=== PATIENT | female | born 1945 | race Caucasian/White ===

== ENCOUNTER 2017-02-20 07:38 | Day surgery (SDC) | payer BC ==
[2017-02-17 20:04] LABS: WBC (NOT ORDERED) (RFLEX) 0 (0-5)
[2017-02-17 20:33] LABS: BASOPHILS 0.9 %; BASOPHILS ABSOLUTE 0.04 10/3/uL (0.0-0.16); EOSINOPHILS ABSOLUTE 0.13 10/3/uL (0.0-0.53); HEMOGLOBIN 10.8 g/dL (12.0-16.0); IMMATURE GRANULOCYTES 0.2 %; IMMATURE GRANULOCYTES ABSOLUTE 0.01 10/3/uL (0.0-0.11); LYMPHOCYTES 29.2 %; LYMPHOCYTES ABSOLUTE 1.28 10/3/uL (0.67-4.30); MEAN CORPUS HGB CONC 33.8 g/dL (32.0-36.0); MEAN CORPUSCULAR HEMOGLOB 34.7 pg (26.0-34.0); MEAN CORPUSCULAR VOLUME 102.9 fL (80-100); MEAN PLATELET VOLUME 9.7 fL (9.2-13.0); MONOCYTES 13.9 %; MONOCYTES ABSOLUTE 0.61 10/3/uL (0.21-1.20); NEUTROPHILS 52.8 %; NEUTROPHILS ABSOLUTE 2.31 10/3/uL (2.02-8.40); PLATELET COUNT 265 10/3/uL (150-400); RBC DISTRIBUTION WIDTH 13.9 % (12.0-16.0); RED CELL COUNT 3.11 10/6/uL (4.0-5.6); WHITE BLOOD CELLS 4.4 10/3/uL (4.5-10.5)
[2017-02-17 20:34] LABS: MANUAL DIFF NO %
[2017-02-17 20:53] LABS: ASCORBIC ACID (UR NOT ORDER) NEG (NEG); BILIRUBIN, URINE NEGATIVE (NEG); KETONE, URINE NEGATIVE (NEG)
[2017-02-17 20:55] LABS: BUN (BLOOD UREA NITROGEN) 36 MG/DL (6-23); CALCIUM, SERUM 8.6 MG/DL (8.5-10.4); CHLORIDE, SERUM 107 MMOL/L (96-112); CO2 (CARBON DIOXIDE) 24 MMOL/L (24-34); GFR AFRICAN AMERICAN 28 ML/MIN (>=60); GFR NON AFRICAN AMERICAN 24 ML/MIN (>=60); GLUCOSE, SERUM 75 MG/DL (60-99); POTASSIUM, SERUM 4.7 MMOL/L (3.5-5.3); SODIUM, SERUM 142 MMOL/L (135-148)
[2017-02-17 20:59] LABS: LEUKOCYTE ESTERASE(NOT OR TRACE (NEG)
--- NOTE | ~2017-02-20 | OP ---
Record Of Operation [facility] [address] [place]. 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 PROCEDURE: Cystoscopy, right ureteral stent removal, right retrograde pyelogram, placement of right ureteral stent, instillation of bladder medications, and examination under anesthesia. SURGEON: Nisha Donaldson M.D. ANESTHESIA: General. SPECIMENS: None. ESTIMATED BLOOD LOSS: None. COMPLICATIONS: None. DRAINS: A 6 x 28 [place] double-J ureteral stent without a string. DISPOSITION: Extubated to recovery room in good condition. HISTORY: This is a 71-year-old woman with the above-stated problems who presents for the above-stated procedure. Her preoperative creatinine was 2.0 today, which is a slight increase from 1.7 last stent exchange. PROCEDURE IN DETAIL: After consent was obtained, the patient was taken to the operating room and placed on the operative table in the supine position. General anesthetic was induced. The patient was then placed in the dorsal lithotomy position. Her perineum was prepped and draped in the usual sterile fashion. Examination under anesthesia revealed vaginal atrophy with a moderate cystocele. Manager Investigations film on the table showed the stent in good position. Cystourethroscopy was performed with a 30-degree and 70-degree lens. Both ureteral orifices were seen. Her stent was seen exiting the right ureteral orifice. It did not have any significant encrustations. The stent was grasped and removed in its entirety. A right retrograde pyelogram was performed. This showed no significant hydronephrosis of the ureter. She did have some dilatation of the renal pelvis and calices. A wire was easily passed up into the kidney. Once it was passed, some slightly cloudy urine did drain. Nothing grossly purulent was seen. The new stent was passed without any difficulty with a good curl seen in the renal pelvis and in the bladder. It was seen to be draining mostly x- ray dye after it was passed. The bladder was drained. 20 mL of 1% lidocaine plain were passed into the bladder, and the scope and sheath were removed. Some K-Y jelly was placed in the vagina due to some dryness that was noted there. The patient was awakened from her anesthetic, extubated, and taken to recovery room in good condition. Record Of Operation [address] [place]. [address] NAME: JIGNESH PASCAL : 43 STATUS : REG [facility] PAT#: [id number] AGE: 71 ADM/REG DATE : 02/20/17 MR#: [id number] REPORT SERV DATE: 02/20/17 DICTATED BY: NISHA DONALDSON DATE: 02/20/17 REPORT STATUS : Draft TRANSCRIBED BY: NIRMAL DATE: 02/20/17 POSTOP PLAN: Plan will be to send her home on amoxicillin 250 mg t.i.d. for three days and ondansetron 4 mg #10 p.r.n. nausea and Lortab 5 mg #15 p.r.n. We will have her obtain a creatinine level in four weeks, a prescription order has been written for this and have the results faxed to my office in my attention. If her creatinine remains stable around 2, we will change the stent out in eight months. If the creatinine level decreases, we will decrease her stent exchange time period to six months. RACIEL/NIRMAL Nisha Donaldson M.D. / [id number] CC: Abril Acharya M.D.
[~2017-02-20 07:38] MED LIST: ASAB PO; FLECAINIDE100 MG PO; FLEXI JOIN1 PO; IRON TAB PO; MULTIPLE VIT PO; PREV15 PO; PRILO PO; TAMBOCOR PO; TURMERIC PO; VITAMIN B-121000 MC1 SL
== END 2017-02-20 20:46 | disposition home or self-care (01) ==
LOC: SDC 07:38
PROVIDERS: Urology
PROC: BT1DYZZ Fluoroscopy of Right Kidney, Ureter and Bladder using Other Contrast (ICD-10-PCS; 2017-02-20)
PROC: 0T768DZ Dilation of Right Ureter with Intraluminal Device, Via Natural or Artificial Opening Endoscopic (ICD-10-PCS; principal; 2017-02-20 08:45)
DX: N13.5 Crossing vessel and stricture of ureter without hydronephrosis (principal); I48.91 Unspecified atrial fibrillation; N18.9 Chronic kidney disease, unspecified; Z88.1 Allergy status to other antibiotic agents; Z88.8 Allergy status to other drugs, medicaments and biological substances; Z79.82 Long term (current) use of aspirin; Z79.899 Other long term (current) drug therapy; Z98.890 Other specified postprocedural states; Z90.710 Acquired absence of both cervix and uterus; Z96.653 Presence of artificial knee joint, bilateral
CPT/HCPCS: 36415; 74420; 80048; 81001; 85025; 93005; C1758; C1769; C2617; J0290; J1580; J2250; J2370; J2405; J3010; Q9967

== ENCOUNTER 2017-03-18 05:37 | Observation (INO) | payer BC ==
--- NOTE | ~2017-03-18 | TEE ---
Transesophageal Echocardiogram [facility] [address] [place]. [address] NAME: JIGNESH PASCAL : 43 STATUS : REG REF PAT#: [id number] AGE: 71 ADM/REG DATE : 03/18/17 MR#: [id number] REPORT SERV DATE: 03/18/17 DICTATED BY: JAS HSU DATE: 03/18/17 REPORT STATUS : Draft TRANSCRIBED BY: NIRMAL DATE: 03/18/17 INDICATIONS: Preoperative for atrial fibrillation ablation. PROCEDURE IN DETAIL: The patient was brought to the Electrophysiology Laboratory in a fasting state. I previously thoroughly discussed the risks and benefits of the procedure with the patient. She agreed to proceed. All questions were answered. She was prepared in the usual fashion on the EP table. The Anesthesia Service was present to provide monitored anesthesia care in the form of IV propofol. When a proper level of sedation was achieved, the transesophageal echocardiogram probe was gently inserted into the patient's oropharynx and advanced into the esophagus without difficulty. FINDINGS: The left atrium is mildly enlarged. Spontaneous echocardiographic contrast was not seen. No thrombus was seen. The left atrial appendage was thoroughly scanned and well seen. No thrombus was seen there. Pulse wave Doppler within the appendage indicates flow velocities up to about 60 cm/second. The mitral valve is morphologically normal. There is mild mitral regurgitation. Left ventricular systolic function grossly appears preserved. The right ventricle has grossly normal systolic function. The tricuspid valve is grossly morphologically normal. No significant tricuspid insufficiency is noted. The right atrium is mildly enlarged. No thrombus is seen. The interatrial septum is intact by 2D interrogation as well as color flow Doppler. The aortic valve is trileaflet and opens well. There is mild aortic insufficiency. The pulmonic valve is morphologically normal. There is no significant pulmonic insufficiency. There is no obvious pericardial effusion. The descending thoracic aorta and aortic arch do not have any significant atherosclerotic plaquing. CONCLUSION: 1. NO INTRACARDIAC THROMBUS IDENTIFIED. 2. GROSSLY PRESERVED LEFT VENTRICULAR SYSTOLIC FUNCTION. 3. NO OBVIOUS INTERATRIAL CONNECTION. [facility]/NIRMAL Jas Hsu M.D. / [id number] CC: Abril Hernandez M.D.
[2017-03-18 06:36] LABS: BASOPHILS 0.7 %; BASOPHILS ABSOLUTE 0.03 10/3/uL (0.0-0.16); EOSINOPHILS 4.4 %; EOSINOPHILS ABSOLUTE 0.18 10/3/uL (0.0-0.53); HEMATOCRIT 30.7 % (36.0-48.0); HEMOGLOBIN 10.4 g/dL (12.0-16.0); IMMATURE GRANULOCYTES 0.2 %; IMMATURE GRANULOCYTES ABSOLUTE 0.01 10/3/uL (0.0-0.11); LYMPHOCYTES 34.1 %; LYMPHOCYTES ABSOLUTE 1.41 10/3/uL (0.67-4.30); MANUAL DIFF NO %; MEAN CORPUS HGB CONC 33.9 g/dL (32.0-36.0); MEAN CORPUSCULAR HEMOGLOB 33.9 pg (26.0-34.0); MEAN PLATELET VOLUME 9.5 fL (9.2-13.0); MONOCYTES 13.3 %; MONOCYTES ABSOLUTE 0.55 10/3/uL (0.21-1.20); NEUTROPHILS 47.3 %; NEUTROPHILS ABSOLUTE 1.95 10/3/uL (2.02-8.40); PLATELET COUNT 228 10/3/uL (150-400); RBC DISTRIBUTION WIDTH 13.4 % (12.0-16.0); RED CELL COUNT 3.07 10/6/uL (4.0-5.6); WHITE BLOOD CELLS 4.1 10/3/uL (4.5-10.5)
[2017-03-18 06:48] LABS: BUN (BLOOD UREA NITROGEN) 38 MG/DL (6-23); CALCIUM, SERUM 9.2 MG/DL (8.5-10.4); CHLORIDE, SERUM 112 MMOL/L (96-112); CO2 (CARBON DIOXIDE) 23 MMOL/L (24-34); CREATININE 1.74 MG/DL (0.55-1.02); GFR AFRICAN AMERICAN 33 ML/MIN (>=60); GFR NON AFRICAN AMERICAN 29 ML/MIN (>=60); GLUCOSE, SERUM 85 MG/DL (60-99); SODIUM, SERUM 144 MMOL/L (135-148)
[2017-03-18] MEDS ORDERED: FISH-EPA1000 MG PO (06:49)
[2017-03-18 11:45] LABS: PARTIAL THROMBO TIME 80.5 SEC (22.5-37.2)
[2017-03-18 12:15] LABS: INTERNATIONAL NORMAL RATI 2.6 UNITS (-); PROTIME (NOT ORD) 27.5 SEC (12.0-14.5)
== END 2017-03-19 13:30 | disposition home or self-care (01) ==
LOC: CORLMH 05:37 → SSU1 05:44
PROVIDERS: Internal Medicine Cardiovascular Disease
PROC: 02583ZZ Destruction of Conduction Mechanism, Percutaneous Approach (ICD-10-PCS; principal; 2017-03-19)
PROC: 02K83ZZ Map Conduction Mechanism, Percutaneous Approach (ICD-10-PCS; 2017-03-19)
PROC: 4A023FZ Measurement of Cardiac Rhythm, Percutaneous Approach (ICD-10-PCS; 2017-03-19)
PROC: 4A0234Z Measurement of Cardiac Electrical Activity, Percutaneous Approach (ICD-10-PCS; 2017-03-19)
DX: I48.0 Paroxysmal atrial fibrillation (principal); N18.9 Chronic kidney disease, unspecified; M19.90 Unspecified osteoarthritis, unspecified site; K21.9 Gastro-esophageal reflux disease without esophagitis; H91.90 Unspecified hearing loss, unspecified ear; D63.1 Anemia in chronic kidney disease; F41.9 Anxiety disorder, unspecified; Z85.72 Personal history of non-Hodgkin lymphomas; Z90.710 Acquired absence of both cervix and uterus; Z98.890 Other specified postprocedural states; Z96.653 Presence of artificial knee joint, bilateral; Z82.3 Family history of stroke; Z92.21 Personal history of antineoplastic chemotherapy; Z88.1 Allergy status to other antibiotic agents; Z88.5 Allergy status to narcotic agent; Z88.6 Allergy status to analgesic agent; Z88.8 Allergy status to other drugs, medicaments and biological substances; Z79.82 Long term (current) use of aspirin; Z79.899 Other long term (current) drug therapy
CPT/HCPCS: 80048; 82962; 85025; 85347; 85610; 85730; 93005; 93312; 93320; 93325; 93613; 93656; 93662; 96372; A9270-GY; C1732; C1759; C1769; C1781; C1894; G0378; J0583; J3010

== ENCOUNTER 2017-03-27 16:37 | Inpatient (IN) | payer BC ==
--- NOTE | ~2017-03-27 | ECH ---
Echocardiogram [facility] [address] [place]. [address] NAME: JIGNESH PASCAL : 43 STATUS : ADM IN [facility]#: [id number] AGE: 72 ADM/REG DATE : 03/27/17 MR#: [id number] REPORT SERV DATE: 03/31/17 DICTATED BY: DAVID BRODY JR. DATE: 03/31/17 REPORT STATUS : Draft TRANSCRIBED BY: MODL DATE: 03/31/17 DATE OF ACQUISITION: 03/30/2017. REFERRING: Dr. Laguerre, Dr. Hsu, and Dr. Rutledge. INDICATIONS: Evaluation for pericardial effusion, limited echo. TECH: Jennifer Irwin is the RDCS. 2-D INTERPRETATION: Limited 2-dimensional echocardiography was performed. Left atrium was mildly dilated. The left ventricle is normal in size and dimension with normal left ventricular systolic function without obvious wall motion abnormality. Ejection fraction approximately 50% to 55%. The aortic valve is trileaflet, sclerotic. Mitral valve appeared to be structurally normal. Remaining cardiac valves appeared to be structurally normal. There was a trace pericardial effusion without echocardiographic evidence of hemodynamic compromise. A right pleural effusion is postulated. CONCLUSION: NORMAL LEFT VENTRICULAR SYSTOLIC FUNCTION. EJECTION FRACTION ESTIMATED APPROXIMATELY 50% TO 55% WITH TRACE PERICARDIAL EFFUSION ONLY. /NIRMAL David Brody Jr., M.D. / [id number] CC: Abril Sky TIFFANY
--- NOTE | ~2017-03-27 | HP ---
History And Physical [place] [address] [facility] [place]. [address] NAME: JIGNESH PASCAL : 43 STATUS : ADM IN [facility]#: [id number] AGE: 72 ADM/REG DATE : 03/27/17 MR#: [id number] REPORT SERV DATE: 03/27/17 DICTATED BY: TIA FLORES DATE: 03/27/17 REPORT STATUS : Draft TRANSCRIBED BY: MODL DATE: 03/27/17 DATE OF ADMISSION: 03/27/2017 CHIEF COMPLAINT: Fever, not feeling well. Sent over from primary care provider. HISTORY OF PRESENT ILLNESS: Obtained from the patient as well as from primary care provider's office report. Also, prior medical records even though limited available to us were thoroughly reviewed. According to the information available, the patient is a pleasant 72-year-old white woman, who has had cardiac ablation on 03/18/[address] Arslan Hsu at [facility]. She was discharged home on 03/19/2017. Since then, the patient stated that she had not felt well, very weak, and she started having fever, chills, and feeling dizzy with headache and myalgias. Symptoms had progressively gotten worse and apparently she was seen in her primary care provider's office in the beginning of the week, where she actually had blood work done on 03/23/2017 that showed anemia with a hemoglobin of 10.1, white count was normal at 5.25. She was later reevaluated on 03/25/2017 with a hemoglobin of 9.4, hematocrit 26.5, also normal white cell count of 4.26. The patient was seen for ultrasound of the abdomen performed on 03/25/2017 that showed small pericardial effusion, mild fatty infiltration of the liver. Otherwise, no other acute significant pathology. Today, the patient was seen in followup in Dr. Seay's office and she had a fever, white count elevated at 13.5, hemoglobin 9.4 with a hematocrit of 28.3. Because of the reported fever and elevated white cell count with increasing anemia and reported pericardial effusion, the patient was referred to the emergency room department for further evaluation. In our emergency room department, the patient was noticed to be pale, ill appearing. The patient had a temperature of 100.5 upon arrival. Further testing revealed urinary tract infection as well as further decrease in hemoglobin and hematocrit with a hemoglobin 7.5, hematocrit 21.8, as well as elevated white cell count of 10.7 and even more significant coagulopathy with a PTT of more than 150 and a PTT of 29.9, INR 2.9, while the patient not on any anticoagulation. Because of the above presentation and because of the above findings during ER evaluation, the patient was referred to the Hospitalist Service for further management and evaluation. PAST MEDICAL HISTORY: Significant for arrhythmia with atrial fibrillation, status post cardiac ablation by Dr. Arslan Hsu on 03/18/2017; history of GERD; history of non- Hodgkin's lymphoma, the patient apparently in remission for at least a couple of months to years; history of chronic kidney disease stage 3 with apparent left nephrectomy and presently undergoing scheduled right ureteral stent placement; history of hyperlipidemia; history of GERD, history of osteoarthritis. PAST SURGICAL HISTORY: Significant for bladder sling x3; colonoscopy; hysterectomy in ; bilateral total knee replacements, subsequent left nephrectomy and schedule right ureteral stent exchange/replaced last in 02/20/2017, followed up regularly by Dr. Donaldson, Urology; history of ORIF of the left hip in 10/2016 after left hip fracture; history of cardiac ablation as mentioned before in 03/18/[address] Arslan Hsu; Lap-Band surgery. ALLERGIES: BENADRYL, PREDNISONE, ERYTHROMYCIN, CIPROFLOXACIN, TRAMADOL, DICLOFENAC, CORTISONE, MOBIC, AND KETEK (TELITHROMYCIN). History And Physical [address] [address] NAME: JIGNESH PASCAL BENITEZ : 43 STATUS : ADM IN [facility]#: [id number] AGE: 72 ADM/REG DATE : 03/27/17 MR#: [id number] REPORT SERV DATE: 03/27/17 DICTATED BY: TIA FLORES DATE: 03/27/17 REPORT STATUS : Draft TRANSCRIBED BY: NIRMAL DATE: 03/27/17 HOME MEDICATIONS: According to list provided, the patient is supposed to take multivitamin 1000 p.o. daily, Prevacid 50 mg p.o. daily, aspirin 81 mg p.o. daily, glucosamine chondroitin tablet one tablet p.o. daily, iron tablet 65 mg p.o. daily, vitamin B12 at 1000 mcg sublingual daily, omega-3 fatty acid 1000 mg p.o. daily. FAMILY HISTORY: Significant for hypertension and coronary artery disease. SOCIAL HISTORY: She is , lives with family. Presently retired. Denies tobacco abuse. Denies alcohol abuse. Denies illicit recreational drug abuse. REVIEW OF SYSTEMS: As per H and P, otherwise negative in all review of systems. Please note that the comprehensive review of system was obtained and pertinent positives were including in the H and P. PHYSICAL EXAMINATION: GENERAL: Pleasant, cooperant, but pale, ill appearing. VITAL SIGNS: Upon arrival in the emergency room, blood pressure 120/57, pulse 87, respiratory rate 18, temperature 100.5, and oxygen saturation 96% on room air. HEENT: With bilateral cataracts. Extraocular movements intact. Throat, mild erythema. No exudate. No signs of tenderness. NECK: Supple. No JVD. No bruits. No thyromegaly. No lymph nodes. LUNGS: Bilateral air entry with few bibasilar crackles. No wheezing. Good airway movement. Right subclavicular Port-A-Cath in place. HEART: Positive S1, S2. Regular rate and rhythm. Positive mitral regurgitation murmur at the apex. Soft. No rub, no gallop. PMI nondisplaced by palpation. ABDOMEN: Positive bowel sounds. Soft. No tenderness, no hepatosplenomegaly, no guarding. EXTREMITIES: Decreased range of motion. Osteoarthritic changes. No clubbing, no cyanosis, no edema, no calf tenderness. +2 pulses. NEUROLOGIC: Alert and oriented x3. Grossly nonfocal. Cranial nerves 2 through 12 grossly intact. Motor strength 5/5 symmetrical bilateral. Deep tendon reflexes 2/2 symmetrical bilateral. BACK: With decreased range of motion. No focal localized tenderness. No CVA tenderness. SKIN: No bruises, no rashes. No lacerations. SIGNIFICANT LABORATORY DATA: Chest x-ray (personal reading) showed no acute infiltrate. Cardiac silhouette within normal limits. EKG (personal reading) showed normal sinus rhythm at 84 beats per minute with occasional PVCs. No acute ST elevation. Urinalysis was cloudy, large LE, small blood, white cells more than 182 with many clumps, many yeasts, and moderate bacteria. Sodium 142, potassium 3.8, chloride 112, bicarb 20, BUN 38, creatinine 1.65, glucose 86, calcium 7.6, magnesium 1.9. Liver function test, slightly elevated with ALT 83 and AST 103. Troponin I less than 0.04, lactate level 0.5 which is within normal limits. White cell count 10.7, hemoglobin 7.5 with a hematocrit 21.8 and platelet count 236. PTT more than 150 and PT time 29.9 with an INR of 2.9. BNP 130.7. ASSESSMENT AND PLAN AND PROBLEM LIST: The patient is a pleasant 72-year-old woman admitted History And Physical [address] [address] NAME: JIGNESH PASCAL : 43 STATUS : ADM IN [facility]#: [id number] AGE: 72 ADM/REG DATE : 03/27/17 MR#: [id number] REPORT SERV DATE: 03/27/17 DICTATED BY: TIA FLORES DATE: 03/27/17 REPORT STATUS : Draft TRANSCRIBED BY: MODKeshav DATE: 03/27/17 with likely urinary tract infection and also significant anemia. IMPRESSION: 1. Renal and genitourinary problem. a. Urinary tract infection with acute cystitis without hematuria. b. Solitary kidney with recent ureteral stent replaced. c. Chronic kidney disease stage 3. For all the above, we are going to admit on the Hospitalist Service. We are going to obtain a Urology consult with Dr. Donaldson especially at the request of the patient at this moment. We are going to check a CT scan of the abdomen and pelvis without contrast to assess for any signs of urinary retention, blockage, and obstructive uropathy. Start IV antibiotic with IV Rocephin and add at this moment also Diflucan IV due to the presence of yeast in the urine. Monitor BUN and creatinine. Monitor urinary output. Provide gentle IV hydration. 1. Hematologic problem. a. Anemia, severe, symptomatic with acute blood loss component likely perioperatively/after the surgical procedure. b. Coagulopathy, uncertain etiology. Fear lab error. We are going to repeat stat PT, PTT, and CBC. c. Non-Hodgkin's lymphoma, in remission. Continue to monitor and follow up as per the patient as outpatient with her oncologist. d. Leukocytosis, likely infectious. We are going to start treatment for her urinary tract infection. We are going to transfuse 1 unit of PRBCs and monitor H and H, continue Hemoccult. Sent anemia studies. In case her coagulopathy test remains elevated especially PT and INR, we are going to give vitamin K and FFPs. 2. Cardiovascular. a. Arrhythmia with atrial fibrillation, status post cardiac ablation by Dr. Arslan Hsu on 03/18/2017, presently remained in sinus rhythm. Continue to monitor. b. Pericardial effusion by report from outside abdominal ultrasound testing. We are going to obtain a limited 2D echo in a.m. to assess the size of the pericardial effusion. If significant, we are going to obtain Cardiology consultation. 3. Gastrointestinal problem. a. Gastroesophageal reflux disease by history. b. Elevated liver function tests. c. Nonalcoholic steatohepatitis ("fatty liver"). For all the above, we are going to use Protonix PPI 40 mg IV b.i.d. and monitor liver function tests. Monitor for any signs of gastrointestinal bleed. 1. Hyperlipidemia, mixed type. Continue fish oil and low-cholesterol diet. 2. Osteoarthritis, osteoporosis, deconditioning, and debilitation. The patient to consider physical therapy and encouraged mobilization. PROGNOSIS: Moderately good for this admission. Discussed with patient and questions were answered in full. Please note, the patient is a full code at this moment as discussed with the patient. History And Physical [address] [address] NAME: JIGNESH PASCAL : 43 STATUS : ADM IN [facility]#: [id number] AGE: 72 ADM/REG DATE : 03/27/17 MR#: [id number] REPORT SERV DATE: 03/27/17 DICTATED BY: TIA FLORES ION DATE: 03/27/17 REPORT STATUS : Draft TRANSCRIBED BY: MODL DATE: 03/27/17 RF/NIRMAL Tia Flores M.D. / [id number] CC: Abril Sky M.D. Michael C Allan, M.D. Kymber Habenicht, M.D.
--- NOTE | ~2017-03-27 | CN ---
Consultation Report [facility] [address] [place]. [address] NAME: JIGNESH PASCAL : 43 STATUS : ADM IN [facility]#: [id number] AGE: 72 ADM/REG DATE : 03/27/17 MR#: [id number] REPORT SERV DATE: 03/28/17 DICTATED BY: TRISTA HUITRON DATE: 03/28/17 REPORT STATUS : Draft TRANSCRIBED BY: MODL DATE: 03/28/17 CONSULTATION DATE OF CONSULTATION: 03/28/2017 HISTORY: This is a 72-year-old white female, who was admitted to [facility] on 03/27/2017 with complaints of a roughly two-week history of not feeling well and weakness, and also pelvic and hip pain. This progressed to fevers and chills prompting an emergency room visit. Upon arrival in the emergency room, she appeared to have infected urine and was running a fever of 100.5. She sees Dr. Donaldson for chronic right ureteral obstruction, managed with a chronic stent. She underwent stent exchange on 02/20/2017. She has a severely atrophic, likely nonfunctional left kidney. She also has chronic renal disease and the creatinine here has been roughly 1.6. She is chronically incontinent as well and just simply voids into a diaper. She has had multiple bladder neck suspension type surgeries in the past. Ideally, she is not really complaining of any bladder or urinary problems. Specifically, she has no dysuria, no hematuria, no foul odor to the urine, etc. She does complain of pain across her pelvis, but she points more toward both hips. She has been having some back pain, but did not relate that to her kidney specifically. MEDICAL HISTORY: Includes a history of non-Hodgkin's lymphoma. This has been treated in the past, but she is not on any treatment at this point. Also atrial fibrillation, status post recent cardiac ablation on 03/18/2017, reflux, chronic renal disease, hyperlipidemia, arthritis. SURGICAL HISTORY: Includes chronic stent exchange most recently 02/20/[address] Donaldson, remote hysterectomy, history of multiple bladder neck sling type surgeries, bilateral knee replacements, repair of a left hip fracture in 10/2016, and lap band surgery. SOCIAL HISTORY: She is . She is retired. She does not drink or smoke. MEDICATIONS: She takes no chronic medicine. Her active hospital medications have been reviewed and include Rocephin daily. ALLERGIES: SHE HAS MULTIPLE ALLERGIES INCLUDING DIPHENHYDRAMINE, PREDNISONE, ERYTHROMYCIN, CIPRO, TRAMADOL, DICLOFENAC, CORTISONE, MELOXICAM, TELITHROMYCIN. PHYSICAL EXAMINATION: GENERAL: She is a pleasant white female, who does not appear in any overt distress at this time. She is alert, oriented, and conversive. VITAL SIGNS: She is afebrile. Her vital signs are stable. HEENT: Pupils are equal, round, and reactive. Extraocular movements intact. Oropharynx clear. NECK: Supple. No adenopathy. LUNGS: Clear. Consultation Report [place] [id number] [facility] [place]. [address] NAME: JIGNESH PASCAL : 43 STATUS : ADM IN [facility]#: [id number] AGE: 72 ADM/REG DATE : 03/27/17 MR#: [id number] REPORT SERV DATE: 03/28/17 DICTATED BY: TRISTA HUITRON DATE: 03/28/17 REPORT STATUS : Draft TRANSCRIBED BY: NIRMAL DATE: 03/28/17 ABDOMEN: Soft, nontender, and nondistended. Her back seems to be nontender. EXTREMITIES: No cyanosis. LABORATORY VALUES: Urine culture shows greater than 100,000 gram-negative bacilli. Her creatinine is currently 1.7. White count is 10.2, H and H 10.2 and 29.6. Procalcitonin was elevated at 1.3. Urinalysis on admission showed greater than 180 white cells and 8 red cells per high-powered field. CT of the abdomen and pelvis has been reviewed. The right ureteral stent is in position and appears to be well positioned with no overt right hydronephrosis. There are likely inflammatory changes around the right kidney. The left kidney is quite atrophic and likely nonfunctional. The bladder appears to be decompressed. Incidental note is made of chronic left hydro. Note was also made of increased soft tissue in the retroperitoneum of uncertain origin. IMPRESSION: 1. Febrile urinary tract infection. 2. Chronic right ureteral obstruction. Managed with chronic stenting. Last exchanged by Dr. Donaldson, 02/20/2017. 3. Severely atrophic, likely nonfunctional left kidney. 4. Chronic urinary incontinence. 5. History of multiple bladder neck sling surgeries. 6. Chronic renal disease. 7. Atrial fibrillation, status post recent cardiac ablation, 03/18/2017. 8. History of lymphoma, now with increased retroperitoneal soft tissue densities noted on CT scan. RECOMMENDATIONS: From a standpoint, we will observe for now given no definitive findings of hydronephrosis on the right side. I am going to check a PVR volume. We will await her final urine C and S results. Agree with Corinna at this time. We will certainly notify Dr. Donaldson for admission on Thursday. Thank you very much for the consult. DS/MODL Trista Huitron M.D. / [id number] CC: Abril Sky Tiffany
--- NOTE | ~2017-03-27 | DS ---
Discharge Summary [facility] [address] [place]. [address] NAME: JIGNESH PASCAL : 43 STATUS : DIS IN PAT#: [id number] AGE: 72 ADM/REG DATE : 03/27/17 MR#: [id number] REPORT SERV DATE: 04/01/17 DICTATED BY: RADHA CACERES DATE: 03/31/17 REPORT STATUS : Draft TRANSCRIBED BY: MODL DATE: 03/31/17 ADMISSION DATE: 03/27/2017 DISCHARGE DATE: CONSULTING PHYSICIAN: 1. Dr. Donaldson for Urology. 2. Dr. Lex Dumont for Oncology. 3. Dr. Fawn Franklin, her outpatient oncologist. FINAL DIAGNOSES: 1. Klebsiella pneumoniae and Proteus mirabilis urinary tract infection. 2. Chronic kidney disease 3. 3. Acute blood loss anemia, status post 1 unit of packed RBC. 4. History of stage IVB non-Hodgkin lymphoma. 5. Trace pericardial effusion. 6. Recent cardiac ablation. DIAGNOSTIC EXAM: Chest x-ray showing no acute cardiopulmonary process. CAT scan of the abdomen and pelvis showing retroperitoneal soft tissue density surrounding the abdominal aorta and IVC as well as renal vessels extending from at least the crux of the diaphragm to just above the aortic bifurcation. Findings may be due to retroperitoneal fibrosis or malignancy such as lymphoma. Double-J ureteral stent in place in the right, appearing to be in good position. No definite dilatation of the right renal collecting system. Mild-to- moderate left hydronephrosis likely chronic with chronic appearing atrophic left kidney. Colonic diverticulosis without acute diverticulitis. Trace right pleural effusion. Small hiatal hernia. Echocardiogram showing normal left ventricular systolic function, EF of 50%- 55%, with trace pericardial effusion. HOSPITAL COURSE: Please refer to the H and P done by Dr. Gutierrez, dated on 03/27/2017. Briefly, this is a 72-year-old female, sent over from the PCP for not feeling well. The patient has a history of stage IV non-Hodgkin lymphoma and has been following with Dr. Fawn Franklin in [place]. She completed chemotherapy and radiation therapy and was being followed with serial CAT scans. She was told that everything is stable. She underwent a cardiac ablation on 03/18/[address] Arslan Hsu and discharged on 03/19/2017, but she said she has not felt very well, started having fever, chills, dizziness, headache, myalgias. It got worse, went to the PCP, got blood work done and showed she has anemia. Ultrasound was also done, showed small pericardial effusion, and the patient was then sent to the emergency room for further evaluation. The patient was then admitted by Dr. Gutierrez for possible UTI and we got Dr. Estrella involved, who is covering for Dr. Donaldson, and when she followed up, she believes that everything is stable. Recommended antibiotics for at least 14 days. Follow up with Oncology and cleared the patient for discharge. We also got the echocardiogram, which shows the above findings, and she will just need followup on an outpatient basis for that. Meanwhile, a CAT scan shows the above findings. Unfortunately, we do not have the films from [facility] to compare it with. So, we got Oncology involved. They wanted to have our radiologist compare it in the PAC system and once they done that they will decide on the recommendation, but most likely that she is going to be discharged Discharge Summary [address] [address] NAME: JIGNESH PASCAL BENITEZ : 43 STATUS : DIS IN PAT#: [id number] AGE: 72 ADM/REG DATE : 03/27/17 MR#: [id number] REPORT SERV DATE: 04/01/17 DICTATED BY: RADHA CACERES DATE: 03/31/17 REPORT STATUS : Draft TRANSCRIBED BY: NIRMAL DATE: 03/31/17 with outpatient followup with Dr. Franklin in April. So once we get clearance from Oncology, we will be discharging the patient with the above diagnosis. We will be giving her a prescription for Duricef 500 mg twice a day for her UTI for 10 more days to complete two weeks. She will continue her other home medications of vitamin B12 1000 mcg sublingual a day, multivitamin once a day, omega-3 fatty acid 1000 mg a day, Prevacid 15 mg a day, aspirin 81 mg a day, iron pills, and glucosamine chondroitin sulfate. The patient also got a unit of blood. So for the H and H has been stable. Her discharge H and H are 10.6 and 31, up from 7.5 and 21.8 on admission. The patient will follow up with her PCP, Angel Seay, in one to two weeks. Follow up with Dr. Fawn Franklin in April as scheduled and follow up with Dr. Donaldson as scheduled. The patient would want an outpatient PT, not a home PT. This has been explained to her in front of family members. Multiple questions answered. TIME SPENT: 45 minutes. RUFUS/NIRMAL Radha Caceres M.D. / [id number] CC: Abril Sky M.D. TIFFANY HAYES, PA-C
[~2017-03-27 16:37] MED LIST changes: +FISH-EPA1000 MG PO
[2017-03-27 17:22] LABS: ASCORBIC ACID (UR NOT ORDER) NEG (NEG); BILIRUBIN, URINE NEGATIVE (NEG); ER URINALYSIS TAT 0 Hrs 13 Mins; KETONE, URINE NEGATIVE (NEG); LEUKOCYTE ESTERASE(NOT OR LARGE (NEG); NITRITE (URINE) NEG (NEG)
[2017-03-27 17:23] LABS: WBC (NOT ORDERED) (RFLEX) > 182 (0-5)
[2017-03-27 17:25] LABS: BASOPHILS 0.1 %; BASOPHILS ABSOLUTE 0.01 10/3/uL (0.0-0.16); EOSINOPHILS 0.1 %; EOSINOPHILS ABSOLUTE 0.01 10/3/uL (0.0-0.53); IMMATURE GRANULOCYTES 0.4 %; IMMATURE GRANULOCYTES ABSOLUTE 0.04 10/3/uL (0.0-0.11); LYMPHOCYTES 12.6 %; LYMPHOCYTES ABSOLUTE 1.35 10/3/uL (0.67-4.30); MEAN CORPUS HGB CONC 34.4 g/dL (32.0-36.0); MEAN CORPUSCULAR HEMOGLOB 34.1 pg (26.0-34.0); MEAN CORPUSCULAR VOLUME 99.1 fL (80-100); MEAN PLATELET VOLUME 9.3 fL (9.2-13.0); MONOCYTES 11.6 %; MONOCYTES ABSOLUTE 1.24 10/3/uL (0.21-1.20); NEUTROPHILS 75.2 %; NEUTROPHILS ABSOLUTE 8.06 10/3/uL (2.02-8.40); PLATELET COUNT 236 10/3/uL (150-400); RBC DISTRIBUTION WIDTH 13.4 % (12.0-16.0)
[2017-03-27 17:31] LABS: ER CBC TAT 0 Hrs 14 Mins; HEMATOCRIT 21.8 % (36.0-48.0); HEMOGLOBIN 7.5 g/dL (12.0-16.0); MANUAL DIFF NO %; WHITE BLOOD CELLS 10.7 10/3/uL (4.5-10.5)
[2017-03-27 17:34] LABS: INTERNATIONAL NORMAL RATI 2.9 UNITS (-); PROTIME (NOT ORD) 29.9 SEC (12.0-14.5)
[2017-03-27 17:42] LABS: A/G RATIO 0.9 (0.7-1.9); ALBUMIN 2.6 G/DL (3.5-5.0); ALKALINE PHOSPHATASE 135 U/L (45-117); BUN (BLOOD UREA NITROGEN) 38 MG/DL (6-23); CHEST PAIN PROFILE TAT 0 Hrs 25 Mins; CHLORIDE, SERUM 112 MMOL/L (96-112); CO2 (CARBON DIOXIDE) 20 MMOL/L (24-34); CREATININE 1.65 MG/DL (0.55-1.02); GFR AFRICAN AMERICAN 35 ML/MIN (>=60); GFR NON AFRICAN AMERICAN 30 ML/MIN (>=60); GLUCOSE, SERUM 86 MG/DL (60-99); POTASSIUM, SERUM 3.8 MMOL/L (3.5-5.3); SGOT(AST) 103 U/L (5-40); SGPT(ALT) 83 U/L (5-65); SODIUM, SERUM 142 MMOL/L (135-148); TOTAL BILIRUBIN 0.4 MG/DL (0-1.2); TOTAL PROTEIN 5.6 G/DL (6.0-8.5); TROPONIN I 0.04 NG/ML (<0.05)
[2017-03-27 17:43] LABS: CALCIUM, SERUM 7.6 MG/DL (8.5-10.4)
[2017-03-27 17:47] LABS: PARTIAL THROMBO TIME > 150.0 SEC (22.5-37.2)
[2017-03-27 19:55] LABS: ER CBC TAT 0 Hrs 08 Mins; HEMATOCRIT 23.9 % (36.0-48.0); HEMOGLOBIN 8.3 g/dL (12.0-16.0); MEAN CORPUS HGB CONC 34.7 g/dL (32.0-36.0); MEAN CORPUSCULAR HEMOGLOB 34.3 pg (26.0-34.0); MEAN CORPUSCULAR VOLUME 98.8 fL (80-100); MEAN PLATELET VOLUME 8.8 fL (9.2-13.0); PLATELET COUNT 218 10/3/uL (150-400); RBC DISTRIBUTION WIDTH 13.4 % (12.0-16.0); RED CELL COUNT 2.42 10/6/uL (4.0-5.6); WHITE BLOOD CELLS 10.5 10/3/uL (4.5-10.5)
[2017-03-27 19:58] LABS: MANUAL DIFF YES %
[2017-03-27 20:03] LABS: INTERNATIONAL NORMAL RATI 1.3 UNITS (-); PARTIAL THROMBO TIME 34.3 SEC (22.5-37.2)
[2017-03-27 20:08] LABS: PROTIME (NOT ORD) 16.4 SEC (12.0-14.5)
[2017-03-27 21:02] LABS: BAND NEUTROPHILS 5 %; EOSINOPHILS 1 %; EOSINOPHILS ABSOLUTE (CALC) 0.11 10/3/uL (0.0-0.53); ER DIFF TAT 1 Hrs 15 Mins; LYMPHOCYTES 10 %; LYMPHOCYTES ABSOLUTE (CALC) 1.05 10/3/uL (0.67-4.30); MONOCYTES 11 %; MONOCYTES ABSOLUTE (CALC) 1.16 10/3/uL (0.21-1.20); NEUTROPHILS ABSOLUTE (CALC) 8.19 10/3/uL (2.02-8.40); SEGMENTED NEUTROPHIL (0) 73 %; TOTAL NUCLEATED CELLS 100
[2017-03-27 21:03] LABS: HELMET CELLS FEW (3-10/OIF); PLATELET ESTIMATE ADQ (ADEQUATE)
[2017-03-27 21:15] LABS: RETICULOCYTE COUNT 1.6 % (0.5-2.5); RETICULOCYTE COUNT ABSOLUTE 40.6 10/3/uL (20.2-119.8)
[2017-03-27 21:39] LABS: PHOSPHORUS, SERUM 2.6 MG/DL (2.5-4.5); ULTRASENSITIVE TSH 1.06 MCIU/ML (0.358-3.740)
[2017-03-27 22:36] LABS: FIBRINOGEN 522 MG/DL (230-462)
[2017-03-27 23:01] LABS: PROCALCITONIN 1.3 ng/mL (<0.5)
[2017-03-28 10:14] LABS: BASOPHILS 0.3 %; BASOPHILS ABSOLUTE 0.03 10/3/uL (0.0-0.16); EOSINOPHILS 0.4 %; EOSINOPHILS ABSOLUTE 0.04 10/3/uL (0.0-0.53); IMMATURE GRANULOCYTES 0.3 %; IMMATURE GRANULOCYTES ABSOLUTE 0.03 10/3/uL (0.0-0.11); LYMPHOCYTES 7.6 %; LYMPHOCYTES ABSOLUTE 0.77 10/3/uL (0.67-4.30); MEAN CORPUS HGB CONC 34.5 g/dL (32.0-36.0); MEAN CORPUSCULAR HEMOGLOB 33.3 pg (26.0-34.0); MEAN CORPUSCULAR VOLUME 96.7 fL (80-100); MEAN PLATELET VOLUME 9.3 fL (9.2-13.0); MONOCYTES 10.5 %; MONOCYTES ABSOLUTE 1.07 10/3/uL (0.21-1.20); NEUTROPHILS 80.9 %; NEUTROPHILS ABSOLUTE 8.21 10/3/uL (2.02-8.40); PLATELET COUNT 211 10/3/uL (150-400); WHITE BLOOD CELLS 10.2 10/3/uL (4.5-10.5)
[2017-03-28 10:15] LABS: HEMATOCRIT 29.6 % (36.0-48.0); HEMOGLOBIN 10.2 g/dL (12.0-16.0); MANUAL DIFF NO %; RBC DISTRIBUTION WIDTH 16.1 % (12.0-16.0); RED CELL COUNT 3.06 10/6/uL (4.0-5.6)
[2017-03-28 10:21] LABS: INTERNATIONAL NORMAL RATI 1.3 UNITS (-); PARTIAL THROMBO TIME 31.3 SEC (22.5-37.2); PROTIME (NOT ORD) 15.7 SEC (12.0-14.5)
[2017-03-28 10:31] LABS: ALBUMIN 2.6 G/DL (3.5-5.0); BUN (BLOOD UREA NITROGEN) 32 MG/DL (6-23); CALCIUM, SERUM 8.6 MG/DL (8.5-10.4); CHLORIDE, SERUM 111 MMOL/L (96-112); CK-MB 0.9 NG/ML; CO2 (CARBON DIOXIDE) 23 MMOL/L (24-34); CPK 53 U/L (0-200); CREATININE 1.77 MG/DL (0.55-1.02); GFR AFRICAN AMERICAN 32 ML/MIN (>=60); GFR NON AFRICAN AMERICAN 28 ML/MIN (>=60); GLUCOSE, SERUM 85 MG/DL (60-99); PHOSPHORUS, SERUM 2.9 MG/DL (2.5-4.5); POTASSIUM, SERUM 4.1 MMOL/L (3.5-5.3); SODIUM, SERUM 136 MMOL/L (135-148); TROPONIN I 0.03 NG/ML (<0.05)
[2017-03-29 07:23] LABS: BASOPHILS 0.1 %; BASOPHILS ABSOLUTE 0.01 10/3/uL (0.0-0.16); EOSINOPHILS 1.4 %; EOSINOPHILS ABSOLUTE 0.11 10/3/uL (0.0-0.53); HEMATOCRIT 28.5 % (36.0-48.0); HEMOGLOBIN 9.7 g/dL (12.0-16.0); IMMATURE GRANULOCYTES 0.3 %; IMMATURE GRANULOCYTES ABSOLUTE 0.02 10/3/uL (0.0-0.11); LYMPHOCYTES 8.7 %; LYMPHOCYTES ABSOLUTE 0.68 10/3/uL (0.67-4.30); MANUAL DIFF NO %; MEAN CORPUSCULAR HEMOGLOB 32.9 pg (26.0-34.0); MEAN CORPUSCULAR VOLUME 96.6 fL (80-100); MEAN PLATELET VOLUME 9.3 fL (9.2-13.0); MONOCYTES 10.5 %; MONOCYTES ABSOLUTE 0.82 10/3/uL (0.21-1.20); NEUTROPHILS ABSOLUTE 6.14 10/3/uL (2.02-8.40); PLATELET COUNT 222 10/3/uL (150-400); RBC DISTRIBUTION WIDTH 15.8 % (12.0-16.0); RED CELL COUNT 2.95 10/6/uL (4.0-5.6); WHITE BLOOD CELLS 7.8 10/3/uL (4.5-10.5)
[2017-03-29 07:38] LABS: A/G RATIO 0.7 (0.7-1.9); ALBUMIN 2.5 G/DL (3.5-5.0); ALKALINE PHOSPHATASE 146 U/L (45-117); BUN (BLOOD UREA NITROGEN) 30 MG/DL (6-23); CALCIUM, SERUM 8.3 MG/DL (8.5-10.4); CHLORIDE, SERUM 110 MMOL/L (96-112); CO2 (CARBON DIOXIDE) 20 MMOL/L (24-34); CREATININE 1.85 MG/DL (0.55-1.02); GFR AFRICAN AMERICAN 31 ML/MIN (>=60); GFR NON AFRICAN AMERICAN 27 ML/MIN (>=60); GLOBULIN 3.5 G/DL (2.5-4.1); GLUCOSE, SERUM 78 MG/DL (60-99); POTASSIUM, SERUM 3.8 MMOL/L (3.5-5.3); SGOT(AST) 31 U/L (5-40); SGPT(ALT) 59 U/L (5-65); SODIUM, SERUM 138 MMOL/L (135-148); TOTAL BILIRUBIN 0.5 MG/DL (0-1.2)
[2017-03-30 06:24] LABS: BASOPHILS 0.5 %; BASOPHILS ABSOLUTE 0.03 10/3/uL (0.0-0.16); EOSINOPHILS 3.3 %; EOSINOPHILS ABSOLUTE 0.22 10/3/uL (0.0-0.53); HEMATOCRIT 27.3 % (36.0-48.0); HEMOGLOBIN 9.3 g/dL (12.0-16.0); IMMATURE GRANULOCYTES 0.3 %; IMMATURE GRANULOCYTES ABSOLUTE 0.02 10/3/uL (0.0-0.11); LYMPHOCYTES 13.1 %; LYMPHOCYTES ABSOLUTE 0.87 10/3/uL (0.67-4.30); MEAN CORPUS HGB CONC 34.1 g/dL (32.0-36.0); MEAN CORPUSCULAR HEMOGLOB 32.7 pg (26.0-34.0); MEAN CORPUSCULAR VOLUME 96.1 fL (80-100); MEAN PLATELET VOLUME 8.9 fL (9.2-13.0); MONOCYTES 11.5 %; MONOCYTES ABSOLUTE 0.76 10/3/uL (0.21-1.20); NEUTROPHILS 71.3 %; NEUTROPHILS ABSOLUTE 4.73 10/3/uL (2.02-8.40); PLATELET COUNT 226 10/3/uL (150-400); RBC DISTRIBUTION WIDTH 15.1 % (12.0-16.0); RED CELL COUNT 2.84 10/6/uL (4.0-5.6); WHITE BLOOD CELLS 6.6 10/3/uL (4.5-10.5)
[2017-03-30 06:25] LABS: MANUAL DIFF NO %
[2017-03-30 06:35] LABS: BUN (BLOOD UREA NITROGEN) 28 MG/DL (6-23); CALCIUM, SERUM 8.2 MG/DL (8.5-10.4); CHLORIDE, SERUM 115 MMOL/L (96-112); CO2 (CARBON DIOXIDE) 21 MMOL/L (24-34); CREATININE 1.74 MG/DL (0.55-1.02); GFR AFRICAN AMERICAN 33 ML/MIN (>=60); GFR NON AFRICAN AMERICAN 29 ML/MIN (>=60); POTASSIUM, SERUM 3.8 MMOL/L (3.5-5.3); SODIUM, SERUM 143 MMOL/L (135-148)
[2017-03-30 06:37] LABS: GLUCOSE, SERUM 96 MG/DL (60-99)
[2017-03-31 05:42] LABS: BASOPHILS 0.3 %; BASOPHILS ABSOLUTE 0.02 10/3/uL (0.0-0.16); EOSINOPHILS 4.6 %; EOSINOPHILS ABSOLUTE 0.28 10/3/uL (0.0-0.53); HEMOGLOBIN 10.6 g/dL (12.0-16.0); IMMATURE GRANULOCYTES 0.5 %; IMMATURE GRANULOCYTES ABSOLUTE 0.03 10/3/uL (0.0-0.11); LYMPHOCYTES 20.1 %; LYMPHOCYTES ABSOLUTE 1.23 10/3/uL (0.67-4.30); MANUAL DIFF NO %; MEAN CORPUS HGB CONC 34.2 g/dL (32.0-36.0); MEAN CORPUSCULAR HEMOGLOB 32.8 pg (26.0-34.0); MEAN PLATELET VOLUME 9.1 fL (9.2-13.0); MONOCYTES 10.3 %; MONOCYTES ABSOLUTE 0.63 10/3/uL (0.21-1.20); NEUTROPHILS 64.2 %; NEUTROPHILS ABSOLUTE 3.92 10/3/uL (2.02-8.40); PLATELET COUNT 293 10/3/uL (150-400); RBC DISTRIBUTION WIDTH 14.8 % (12.0-16.0); RED CELL COUNT 3.23 10/6/uL (4.0-5.6); WHITE BLOOD CELLS 6.1 10/3/uL (4.5-10.5)
[2017-03-31 05:51] LABS: BUN (BLOOD UREA NITROGEN) 27 MG/DL (6-23); CALCIUM, SERUM 8.9 MG/DL (8.5-10.4); CHLORIDE, SERUM 114 MMOL/L (96-112); CO2 (CARBON DIOXIDE) 22 MMOL/L (24-34); CREATININE 1.76 MG/DL (0.55-1.02); GFR AFRICAN AMERICAN 33 ML/MIN (>=60); GFR NON AFRICAN AMERICAN 28 ML/MIN (>=60); GLUCOSE, SERUM 98 MG/DL (60-99); POTASSIUM, SERUM 3.9 MMOL/L (3.5-5.3); SODIUM, SERUM 142 MMOL/L (135-148)
[2017-03-31] MEDS ORDERED: DURICEF PO (11:21)
== END 2017-04-01 | disposition home or self-care (01) | DRG 690 ==
LOC: ER 16:37 → 2SO 20:39
PROVIDERS: Internal Medicine; Nurse Practitioner Family
PROC: 30233N1 Transfusion of Nonautologous Red Blood Cells into Peripheral Vein, Percutaneous Approach (ICD-10-PCS; principal; 2017-03-27)
DX: N39.0 Urinary tract infection, site not specified (principal); I31.3 Pericardial effusion (noninflammatory); D62 Acute posthemorrhagic anemia; N13.30 Unspecified hydronephrosis; I48.0 Paroxysmal atrial fibrillation; K75.81 Nonalcoholic steatohepatitis (NASH); B96.4 Proteus (mirabilis) (morganii) as the cause of diseases classified elsewhere; B96.1 Klebsiella pneumoniae [K. pneumoniae] as the cause of diseases classified elsewhere; N18.3 Chronic kidney disease, stage 3 (moderate); K21.9 Gastro-esophageal reflux disease without esophagitis; E78.2 Mixed hyperlipidemia; M19.90 Unspecified osteoarthritis, unspecified site; M81.0 Age-related osteoporosis without current pathological fracture; I12.9 Hypertensive chronic kidney disease with stage 1 through stage 4 chronic kidney disease, or unspecified chronic kidney disease; E78.5 Hyperlipidemia, unspecified; R32 Unspecified urinary incontinence; N30.00 Acute cystitis without hematuria; M85.80 Other specified disorders of bone density and structure, unspecified site; Z96.653 Presence of artificial knee joint, bilateral; Z88.1 Allergy status to other antibiotic agents; Z88.8 Allergy status to other drugs, medicaments and biological substances; Z85.72 Personal history of non-Hodgkin lymphomas; Z92.21 Personal history of antineoplastic chemotherapy; Z92.3 Personal history of irradiation; Z87.442 Personal history of urinary calculi; Z98.890 Other specified postprocedural states; Z98.84 Bariatric surgery status
CPT/HCPCS: 36415; 71010; 74176; 80048; 80053; 80069; 81001; 82272; 82550; 82553; 82728; 82962; 83540; 83550; 83605; 83735; 83880; 84100; 84145; 84443; 84484; 85025; 85045; 85384; 85610; 85730; 86850; 86900; 86901; 86920; 87040; 87077; 87086; 87186; 93005; 93307; 96374; 96375; 97116-GP; 97161-GP; 99285; A9270-GY; C9113; J0360; J1450; J2405; P9016